=== PATIENT | female | born 1940 | race Two or more races ===

== ENCOUNTER 2024-08-16 16:35 | Inpatient (IN) | payer OTHER ==
[~2024-08-16] VITALS: Ht 165.1 cm; Wt 42.6 kg
[2024-08-16] MEDS ORDERED: LOTREL 10-20 M1 EACH (16:40)
--- NOTE | 2024-08-16 16:42 | NUR ---
PTE ALERTA Y ORIENTADA X3, EN COMPANIA DE [place] QUIEN REFIERE PTE GUALLPA ESTADO PRESENTANDO NAUSEAS Y DESORIENTACION. AL MOMENTO DE TRIAGE SE REALIZAN PREGUNTAS SOBRE TIEMPO,LUGAR Y PERSONA A PACIENTE LAS CUALES RESPONDE TODAS CON NORMALIDAD Y CORRECTAMENTE. SIGNOS VITALES ESTABLES. SE UBICA PTE.
[2024-08-16 18:07] LABS: HEMATOCRIT 36.3 % (36.0-45.00); HEMOGLOBIN 12.2 g/dL (12.0-15.00); MEAN CELL VOLUME 82.4 fL (80.00-100.00); MEAN CORPUSCULAR HEMOGLOBIN 27.6 pg (27.00-32.0); MEAN CORPUSCULAR HGB CONC 33.5 g/dl (32.0-36.0); PLATELET COUNT 331 K/uL (150-450); RED CELL DISTRIBUTION WIDTH 14.5 % (11.5-14.5)
[2024-08-16 18:24] LABS: CALCIUM 10.2 mg/dL (8.5-10.1); CREATININE SERUM 0.77 mg/dL (0.55-1.02); GFR 71.42; POTASSIUM 4.39 mEq/L (3.5-5.1)
[2024-08-16 19:27] LABS: PH,URINE 5.5 (5.0-8.0); URINE APPEARANCE Clear; URINE BILIRRUBIN Negative (NEGATIVE); URINE BLOOD Negative; URINE COLOR Dark Yellow; URINE GLUCOSE Negative (NEGATIVE); URINE KETONE Negative (NEGATIVE); URINE LEUKOCYTE Large; URINE NITRATE Negative; URINE PROTEIN Negative (NEGATIVE); URINE UROBILINOGEN 0.2 E.U./dl
[2024-08-16 19:30] LABS: URINE BACTERIA 843.3 uL (0.0-1933); URINE EPITHELIAL CELLS 23.9 uL (0.0-38.8); URINE RBC 3.2 uL (0.0-20.8); URINE WBC 69.8 uL (0.0-23.2)
[2024-08-16 20:17] LABS: URINE CAST 1.17 uL (0.0-1.40)
[2024-08-16] MEDS ORDERED: ATORVASTATIN CALCIUM 40 MG TABLET PO SCH (21:24)
[2024-08-16] MEDS ORDERED: ASPIRIN 325 MG TABLET.EC PO ONE (21:30)
[2024-08-16] MEDS ORDERED: ENALAPRILAT DIHYDRATE 1.25 MG/ML VIAL IV PRN (21:30)
[2024-08-16] MEDS ORDERED: ACETAMINOPHEN 500 MG GEL..CAP PO PRN (21:30)
[2024-08-16] MEDS ORDERED: 0.9 % SODIUM CHLORIDE 1,000 ML IV SCH (21:30)
[2024-08-16 22:40] VITALS: BP 120/63; O2SAT 99
[2024-08-17] VITALS (9 sets, daily range): BP systolic 119–154; BP diastolic 64–75; O2SAT 95–98
[2024-08-17 08:05] LABS: INR 1.02; PARTIAL THROMBOPLASTIN TIME 27.3 SECONDS (22.0-34.0); PROTHROMBIN TIME 11.1 SECONDS (9.0-11.5)
[2024-08-17 08:35] LABS: CHOL HDL RATIO 3.9 (0-5.0); TSH 1.7 uIU/mL (0.358-3.74)
[2024-08-17] MEDS ORDERED: FAMOTIDINE/PF 20 MG in 0.9 % SODIUM CHLORIDE 8 ML IV PUSH SCH (09:00)
[2024-08-17] MEDS ORDERED: ASPIRIN 81 MG TAB.CHEW PO SCH (09:00)
[2024-08-17] MEDS ORDERED: AMLODIPINE BESYLATE 10 MG TABLET PO SCH (09:00)
[2024-08-17] MEDS ORDERED: CLOPIDOGREL BISULFATE 75 MG TABLET PO SCH (11:39)
[2024-08-18] VITALS (9 sets, daily range): BP systolic 125–140; BP diastolic 63–72; O2SAT 90–100
[2024-08-18] MEDS ORDERED: METHYLPREDNISOLONE SOD SUCC 40 MG VIAL ONE (08:58)
[2024-08-19 00:29] VITALS: BP 124/64; O2SAT 98
[2024-08-19 03:05] VITALS: O2SAT 90
[2024-08-19 05:47] LABS: CALCIUM 9.1 mg/dL (8.5-10.1); CREATININE SERUM 0.64 mg/dL (0.55-1.02); GFR 88.41; POTASSIUM 4.29 mEq/L (3.5-5.1)
[2024-08-19 06:09] LABS: HEMATOCRIT 32.5 % (36.0-45.00); MEAN CORPUSCULAR HEMOGLOBIN 28.1 pg (27.00-32.0); MEAN CORPUSCULAR HGB CONC 33.8 g/dl (32.0-36.0); PLATELET COUNT 298 K/uL (150-450); RED BLOOD COUNT 3.92 M/uL (4.00-6.00); RED CELL DISTRIBUTION WIDTH 14.7 % (11.5-14.5)
[2024-08-19 09:41] VITALS: O2SAT 99
[2024-08-19 14:15] VITALS: O2SAT 99
[2024-08-19 16:16] VITALS: BP 122/69; O2SAT 97
== END 2024-08-19 21:18 | disposition home or self-care (01) | DRG 66 ==
LOC: ER 16:38 → MEDI 21:44
PROVIDERS: General Practice; ADMIT Student in an Organized Health Care Education/Training Program; ATTEND Student in an Organized Health Care Education/Training Program
PROC: B030ZZZ Magnetic Resonance Imaging (MRI) of Brain (ICD-10-PCS; principal; 2024-08-16)
PROC: 4A12X4Z Monitoring of Cardiac Electrical Activity, External Approach (ICD-10-PCS; 2024-08-16)
PROC: B020ZZZ Computerized Tomography (CT Scan) of Brain (ICD-10-PCS; 2024-08-16)
PROC: B246ZZZ Ultrasonography of Right and Left Heart (ICD-10-PCS; 2024-08-16)
PROC: B345ZZZ Ultrasonography of Bilateral Common Carotid Arteries (ICD-10-PCS; 2024-08-16)
PROC: B348ZZZ Ultrasonography of Bilateral Internal Carotid Arteries (ICD-10-PCS; 2024-08-16)
PROC: B020ZZZ Computerized Tomography (CT Scan) of Brain (ICD-10-PCS; 2024-08-18)
DX: I63.331 Cerebral infarction due to thrombosis of right posterior cerebral artery (principal); H53.47 Heteronymous bilateral field defects; R42 Dizziness and giddiness; I10 Essential (primary) hypertension
CPT/HCPCS: 70544

== ENCOUNTER 2024-09-17 14:29 | Emergency (ER) | payer OTHER ==
[~2024-09-17] VITALS: Ht 149.9 cm; Wt 42.6 kg
[~2024-09-17 14:29] MED LIST: LOTREL 10-20 M1 EACH
[2024-09-17] MEDS ORDERED: CHILDREN'S ASPI81 MG PO (15:44)
[2024-09-17] MEDS ORDERED: LIPITOR40 M1 PO (15:44)
[2024-09-17] MEDS ORDERED: ACETAMINOPHEN 500 MG GEL..CAP PO ONE (16:45)
[2024-09-17 16:56] LABS: HEMATOCRIT 36.1 % (36.0-45.00); HEMOGLOBIN 12.2 g/dL (12.0-15.00); MEAN CORPUSCULAR HGB CONC 33.8 g/dl (32.0-36.0); PLATELET COUNT 310 K/uL (150-450); RED BLOOD COUNT 4.35 M/uL (4.00-6.00)
[2024-09-17] MEDS ORDERED: HYOSCYAMINE SULFATE 0.125 MG TAB.SUBL ONE (17:12)
[2024-09-17] MEDS ORDERED: FAMOTIDINE/PF 20 MG/2 ML VIAL ONE (17:13)
[2024-09-17] MEDS ORDERED: HYOSCYAMINE SULFATE 0.125 MG TAB.SUBL SL ONE (17:15)
[2024-09-17] MEDS ORDERED: FAMOTIDINE/PF 20 MG/2 ML VIAL IV PUSH ONE (17:15)
[2024-09-17 17:50] LABS: URINE APPEARANCE Clear; URINE BILIRRUBIN Negative (NEGATIVE); URINE BLOOD Negative; URINE COLOR Yellow; URINE GLUCOSE Negative (NEGATIVE); URINE KETONE Negative (NEGATIVE); URINE LEUKOCYTE Large; URINE NITRATE Negative; URINE PROTEIN Negative (NEGATIVE); URINE UROBILINOGEN 0.2 E.U./dl
[2024-09-17 17:54] LABS: URINE BACTERIA 160.3 uL (0.0-1933); URINE EPITHELIAL CELLS 9.9 uL (0.0-38.8); URINE RBC 11.4 uL (0.0-20.8); URINE WBC 186.4 uL (0.0-23.2)
[2024-09-17 18:08] LABS: URINE CAST 0.14 uL (0.0-1.40)
== END 2024-09-17 22:46 | disposition home or self-care (01) ==
LOC: ER 14:31
PROVIDERS: Emergency Medicine
DX: K29.70 Gastritis, unspecified, without bleeding (principal); R51.9 Headache, unspecified; R10.9 Unspecified abdominal pain; Z20.822 Contact with and (suspected) exposure to COVID-19; I10 Essential (primary) hypertension

== ENCOUNTER → 2024-09-19 | Outpatient (CLI) | payer OTHER ==
[~2024-09-19] MED LIST changes: +CHILDREN'S ASPI81 MG PO; +LIPITOR40 M1 PO
== END | disposition home or self-care (01) ==
LOC: NUCLEAR 08:12
PROVIDERS: ATTEND Student in an Organized Health Care Education/Training Program
DX: I10 Essential (primary) hypertension (principal); I63.9 Cerebral infarction, unspecified